=== PATIENT | female | born 1960 | race Caucasian/White ===

== ENCOUNTER 2016-10-21 08:03 | Inpatient (IN) | payer OTHER ==
--- NOTE | ~2016-10-21 | DS ---
Unit #: [id number] #: [id number] Patient: YAEL HORNER [id number] [facility]. [place] [id number] [place], [place] [address] [id number] I MR#: [id number] NAME: YAEL HORNER ROOM: 466 Age: 56 Sex: F Admission Date: 10/21/2016 : 1960 Discharge Date: 10/26/2016 Attending Physician: Glynn Fountain M.D. Primary Care Physician: Generic Doctor Not In System DISCHARGE SUMMARY DISCHARGE DIAGNOSES 1. Large incisional hernia from previous abdominal operation. 2. Chronic obstructive pulmonary disease. 3. Hypertension. 4. History of hepatitis C. 5. Postoperative intra-abdominal wall hematoma. OPERATIVE PROCEDURE Open incisional hernia repair with onlay of Prolene mesh. DISCHARGE MEDICATIONS Home medications plus Lortab 7.5 one p.o. q.4 hours p.r.n. pain, Medrol Dosepak for chronic obstructive pulmonary disease as well as Levaquin 500 mg a day. HISTORY OF PRESENT ILLNESS AND HOSPITAL COURSE This is a 56-year-old, white female, hypertensive with chronic obstructive pulmonary disease, who had previous lower abdominal incision, I believe, from previous hysterectomy who has a fairly large abdominal wall bulge. She was admitted for operative intervention. It was felt that it could not be doing laparoscopically, still an open incisional hernia repair was performed with onlay of Prolene mesh. This was done without complication. Postoperatively, the patient although who remained awake and alert had to have Pulmonary Medicine consult because of her chronic obstructive pulmonary disease and her drop in O2 saturations. They went ahead and checked her for other causes of hypoxia as well as starting her on nebulizers and some chest x-ray. The patient gradually improved over the course of 3 to 4 days. Her pulmonary status however did keep her in the facility slightly longer. We also went ahead and had to have to continue to evaluate her hemoglobin because she did develop an abdominal wall hematoma from the mobilization of the flaps. After this was evaluated, we went ahead and decided to discharge the patient on home oxygen. This was done, and we went ahead and sent the patient home on home oxygen. On 10/26/2016, her wounds are healing fairly nicely. She is incisionally tender. Otherwise, everything seems to be going well. We will see the patient back for followup in 5 to 6 days. Dictated by... Carter Aldana/rosetta Unit #: [id number] #: [id number] Patient: YAEL HORNER TD: 10/29/2016 04:31 JOB #: [id number] DISCHARGE SUMMARY X Mihai Elizalde MD X DISCHARGE SUMMARY
--- NOTE | ~2016-10-21 | CT16 ---
[facility] A Service of [facility] RADIOLOGY TEXT RESULTS PATIENT: YAEL HORNER LOCATION: [facility] 466-01 : [birth year] UNIT #: [id number] AGE: [address]: Glynn Fountain MD SEX: F ORDER DR: [id number] [facility] [address] [place], [place] [address] [id number] I MR#: [id number] Acc #: [id number] NAME: YAEL HORNER : 1960 SEX: F STUDY DATE/TIME: 10/24/2016 21:32 UNIT: [facility] ROOM: [facility] STUDY DESCRIPTION: CT Angio Chest for PE Attending Physician: Glynn Fountain M.D. Ordering Physician: Su Flores M.D. Primary Care Physician: Generic Doctor Not In System MEDICAL IMAGING REPORT This report is preliminary unless electronic signature is present EXAM CT scan of the chest with pulmonary embolus protocol. DATE OF EXAM 10/24/2016 INDICATION Hypoxia. History of AV malformation. Symptoms for 2 days. TECHNIQUE The patient was given 100 mL of Isovue-370. Spiral imaging was performed through the chest and 3D reconstructions of the pulmonary arteries were generated. NOTE: This CT exam was performed with one or more of the following radiation dose reduction techniques: automatic exposure control, adjustment of mA and/or kV according to patient size, and iterative reconstruction. COMPARISON There is no comparison. FINDINGS There are bilateral breast implants present. Aorta is normal in size. There is no dissection. There is optimal opacification of the pulmonary arteries and there is no CT evidence of pulmonary embolus. The right subclavian artery arises from the posterior aortic arch and passes behind the esophagus which is a normal variant. There is no mediastinal or hilar adenopathy. The visualized portion of the upper abdomen show changes suggesting cirrhosis of the liver with an irregular border, ascites and splenomegaly. Gallstones are present. The lungs have minimal patchy areas of ground-glass density in the upper lobe on the right and left, and there is minimal atelectasis in the right lower lobe. [facility] A Service of [facility] RADIOLOGY TEXT RESULTS PATIENT: YAEL HORNER LOCATION: [facility] 466- : [birth year] UNIT #: [id number] AGE: [address]: Glynn Fountain MD SEX: F ORDER DR: IMPRESSION 1. There is no CT evidence of pulmonary embolus or aortic dissection. There are patchy ground-glass faint infiltrates in them upper lobes. 2. Changes of cirrhosis with splenomegaly and ascites. Dictated by... Brennan Shipley M.D. THIS IS AN ELECTRONICALLY VERIFIED REPORT Brennan Shipley M.D. at 10/25/2016 4:33 PM MICHELLE/paulette TD: 10/25/2016 15:18 JOB #: [id number] MEDICAL IMAGING REPORT COPY
--- NOTE | ~2016-10-21 | CR63 ---
[facility] A Service of [facility] RADIOLOGY TEXT RESULTS PATIENT: YAEL HORNER LOCATION: [facility] 466-01 : [birth year] UNIT #: [id number] AGE: [address]: Glynn Fountain MD SEX: F ORDER DR: [id number] [facility] [address] [place], [place] [address] [id number] I MR#: [id number] Acc #: [id number] NAME: YAEL HORNER : 1960 SEX: F STUDY DATE/TIME: 10/23/2016 15:45 UNIT: [facility] ROOM: [facility] STUDY DESCRIPTION: CR Chest 2 View Attending Physician: Glynn Fountain M.D. Ordering Physician: Su Flores M.D. MEDICAL IMAGING REPORT This report is preliminary unless electronic signature is present EXAM Chest x-ray 10/23 INDICATIONS Shortness of air and weakness. Symptoms started yesterday. FINDINGS 2 views of the chest are compared with 09/03/2015. Lung volumes are low, but the lungs are clear. Cardiac and mediastinal contours are normal. No pneumothorax is seen. No pleural effusion is identified. IMPRESSION No active disease. No pleural fluid or pneumothorax. Dictated by... Glynn Bethea Jr., M.D. THIS IS AN ELECTRONICALLY VERIFIED REPORT Glynn Bethea Jr., M.D. at 10/25/2016 12:54 AM SUZY/quinton TD: 10/23/2016 18:59 JOB #: [id number] MEDICAL IMAGING REPORT COPY
--- NOTE | ~2016-10-21 | OR ---
Unit #: [id number] #: [id number] Patient: YAEL HORNER [id number] [facility] [address] [place], [place] [address] [id number] I MR#: [id number] NAME: YAEL HORNER ROOM: 466 Date of Procedure: 10/21/2016 Admission Date: 10/21/2016 Surgeon: Glynn Fountain M.D. : 1960 Attending Physician: Glynn Fountain M.D. Primary Care Physician: Generic Doctor Not In System OPERATIVE REPORT PREOPERATIVE DIAGNOSIS Incisional ventral hernia. POSTOPERATIVE DIAGNOSIS Incisional ventral hernia. PROCEDURE PERFORMED Open incisional ventral hernia repair with onlay polypropylene mesh. ANESTHESIA General endotracheal anesthesia. ESTIMATED BLOOD LOSS 50 mL. INDICATIONS FOR PROCEDURE Ms. Saeed is a 56-year-old female with hepatitis C and cirrhosis, who was brought to the office by her family. The patient has some degree of dementia. She has an incisional ventral hernia at the level of the umbilicus and extending superiorly that causes the patient significant discomfort even though it is fully reducible. Because of her history of liver disease, she was seen by her gang drill operator and dynamics ax consultant, Dr. Angeles who felt that she is well controlled as she felt that she could proceed with surgery from a cirrhotic standpoint. The patient does not have a caput medusae. Because of her history of ascites in the past and want to avoid intraperitoneal mesh. DESCRIPTION OF PROCEDURE The patient was admitted to [facility], positively identified, and transported to the operating room, and after induction of general endotracheal anesthesia, she received IV antibiotics per SCIP protocol and SCDs were placed. After being prepped and draped in usual sterile fashion. An incision was made over the palpable defect. I dissected down and the hernia sac from the surrounding soft tissues, elevated the hernia sac, opened the hernia sac, and excised the hernia sac from the soft tissue and identified the fascia. I palpated through the fascial defect and there were no other fascial defects above or below the area that was opened and there were no adhesions. I then mobilized the skin and soft tissue off the fascia circumferentially for 4 cm. Once the fascia had been dissected free and the edges freshened up. I closed the fascia primarily with #1 Vicryl Smead-Briceno suture technique. Once the fascia was closed, I infiltrated 30 mL of 0.5% Marcaine with Unit #: [id number] #: [id number] Patient: YAEL HORNER. Polypropylene mesh was then placed over the repair and secured with 2-0 Vicryl suture to the anterior fascia circumferentially. The soft tissue was irrigated with saline and Betadine. Hemostasis was obtained. The soft tissue was then closed over the mesh with 2-0 Vicryl interrupted sutures and the skin was closed with sterile skin nicole. Telfa and Tegaderm were placed as dressing. Sponges and needle counts were correct x3. The patient tolerated the procedure well and was transported to recovery in stable condition. Due to her history of encephalopathy, she will be kept on 23-hour observation to watch for bleeding, ensure pain control, and to monitor her encephalopathy. Dictated by... Carter Tatum/rosetta TD: 10/21/2016 23:18 JOB #: [id number] OPERATIVE REPORT X Glynn Fountain MD PROCEDURE OPERATIVE NOTE
--- NOTE | ~2016-10-21 | CO ---
Unit #: [id number] #: [id number] Patient: YALE HORNER [id number] [address] [address] [id number] MR#: [id number] NAME: YAEL HORNER ROOM: 466 Age: 56 Sex: F Admission Date: 10/21/2016 : 1960 Attending Physician: Glynn Fountain M.D. Primary Care Physician: Generic Doctor Not In System Consultation Date: 10/23/2016 CONSULTATION REPORT REASON FOR CONSULT Hypoxia. HISTORY OF PRESENT ILLNESS This is a 56-year-old female who is well known to our service from previous admission with past medical history significant for hepatitis C, liver cirrhosis, seizure disorder, congestive heart failure, who presented to the hospital for incisional ventral hernia repair. The patient was admitted on 10/21/2016 for that reason. The patient was evaluated for discharge today and she was found to be hypoxic with saturations in the low 90s on 3 to 4 liters nasal cannula. The patient is pleasantly confused and unable to provide a consistent history. She denied any fever or chills. She denied also any coughing but she said she is short of breath as any other person. PAST MEDICAL HISTORY 1. Liver cirrhosis. 2. Seizure disorder. 3. Hepatitis C. 4. Alcohol abuse. 5. Systolic congestive heart failure with ejection fraction of 30% to 35%. 6. Pulmonary hypertension. PAST SURGICAL HISTORY 1. Exploratory laparotomy with appendectomy. 2. Right knee aspiration. 3. section. 4. Ventral hernia repair. HOME MEDICATIONS 1. Aldactone. 2. Keppra. 3. Paxil. 4. Coreg. 5. Multivitamin. 6. Aspirin. 7. Potassium. ALLERGIES 1. Morphine. 2. Phenobarbital. Unit #: [id number] #: [id number] Patient: YAEL HORNER SOCIAL HISTORY The patient smokes two cigarettes per day, unsure for how long she has smoked. She has a remote history of alcoholism. No history of drug abuse recently. FAMILY HISTORY Negative for coronary artery disease. REVIEW OF SYSTEMS Twelve point review of systems were obtained from the patient but she was, again, pleasantly confused and I am unable to verify the reliability of her symptoms. However, she complained of only of shortness of breath and some abdominal tenderness. PHYSICAL EXAMINATION GENERAL: The patient is not in acute distress. HEENT: Atraumatic, normocephalic. PERRLA. EOMI. NECK: Supple. No JVD. No lymphadenopathy. LUNGS: Clear to auscultation bilaterally with decreased breath sounds mainly in the left lower lobe. HEART: S1, S2 with mild systolic murmur. ABDOMEN: Soft, tender to deep palpation. There is incision in the middle of her abdomen which appeared clean with no drainage. EXTREMITIES: No edema or cyanosis. NEUROLOGIC: Awake, alert. She is confused. No focal motor/sensory deficit. SKIN: No rashes. DIAGNOSTIC STUDIES LABORATORY: Magnesium 1.5, creatinine 0.9. White blood cell count 5.6, platelets 88. IMAGING: Unavailable. ASSESSMENT 1. Acute hypoxic respiratory failure. 2. Liver cirrhosis. 3. Pulmonary hypertension. 4. Systolic congestive heart failure. 5. Hepatitis C. 6. Smoking. PLAN 1. Will titrate the oxygen down/off as tolerated. Her baseline is room air. 2. Etiology of her hypoxia is possibly due to hepatic hydrothorax versus hepatopulmonary syndrome versus reports of pulmonary hypertension versus pulmonary edema. 3. Will obtain 2D echo to rule out intrapulmonary shunt. 4. PA/lateral chest x-ray to rule out any effusion needing thoracentesis. 5. Incentive spirometry efforts. It is up to 1.5 liters which is relatively good. 6. DVT/GI prophylaxis. Thank you, Dr. Fountain, for allowing us to be a part of this patient's care. Unit #: [id number] #: [id number] Patient: YAEL HORNER Dictated by... Carter Samuels TD: 10/23/2016 16:07 JOB #: [id number] CONSULTATION REPORT X KVNG MCPHERSON MD CONSULTATION REPORT
[~2016-10-21 08:03] MED LIST: ALDACTONE100 MG PO; ASPIRIN EC81 M1 PO; ASPIRIN81 M2 PO; ATIVAN0.5 MG PO; CALCIUM 600 + D1 TAB PO; CARVEDILOL3.125 MG PO; CENTRUM PO; CHRONULAC10 GM/15 M DOB; COMPAZINE10 M1 PO; COREG3.125 MG PO; CYTOTEC PO; ENSURE PLUS237 ML PO; FUROSEMIDE40 MG PO; GABAPENTIN300 M2 PO; GENERLAC PO; HYDROXYZINE PAM25 MG PO; KCL PO; KEPPRA500 M1 DOB; KEPPRA500 MG PO; LACTULOSE PO; LASIX PO; LISINOPRIL2.5 MG PO; MAGNESIUM250 M1 PO; MAGNESIUM400 MG PO; MORPHINE IR PO; NEURONTIN300 MG PO; PANTOPRAZOLE SO40 MG PO; PAROXETINE HCL10 MG PO; PAROXETINE HCL20 MG PO; PAXIL30 MG PO; PERCOCET7.5 PO; POTASSIUM CHLO20 ME1 PO; POTASSIUM99 M3 PO; PROTONIX PO; ROXANOL20 MG/ML PO; SENNA8.6 M1 PO; SENNA8.6 M2 PO; SIMVASTATIN5 MG PO; SPIRONOLACTONE100 MG PO; THERAPEUTIC FOR1 TA1 PO; VICOPROFEN PO; XIFAXAN550 MG PO; ZESTRIL2.5 M1 PO; ZINC CHELATE50 MG PO; ZINC SULFATE220 M1 PO; ZOCOR5 MG PO; ZOFRAN PO; [UNRECOGNIZED DRUG - OTHER] PO; [UNRECOGNIZED DRUG - OTHER] PO
[2016-10-21 09:11] LABS: BASOPHIL% 1.1 % (0-2.5); EOSINOPHIL# 0.2 X10e3 (0-0.7); EOSINOPHIL% 6.7 % (0.0-7.0); HEMATOCRIT 43.2 % (35.0-45.0); HEMOGLOBIN 14.4 gm/dL (12.0-16.0); LYMPHOCYTE# 0.8 X10e3 (1.0-3.5); LYMPHOCYTE% 27.4 % (17.0-45.0); MEAN CORPUSCULAR HEMOGLOBIN 31.3 PG (28-34); MEAN CORPUSCULAR HGB CONC 33.3 g/dL (30-36); MEAN PLATELET VOLUME 8.3 FL (6.5-11.5); MONOCYTE# 0.4 X10e3 (0-1.0); NEUTROPHIL# 1.5 X10e3 (1.5-7.1); NEUTROPHIL% 49.8 % (40-75); PLATELET COUNT 98 X10e3 (140-420); RED CELL DISTRIBUTION WIDTH 16.2 % (11.0-15.5)
[2016-10-21 09:17] LABS: DIFF IND NO
[2016-10-21 09:18] LABS: INR 1.3; PROTHROMBIN TIME (PATIENT) 13.8 SECONDS (9.6-11.5)
[2016-10-22 04:32] LABS: BASOPHIL% 0.2 % (0-2.5); EOSINOPHIL# 0.2 X10e3 (0-0.7); EOSINOPHIL% 3.8 % (0.0-7.0); HEMATOCRIT 37.5 % (35.0-45.0); LYMPHOCYTE# 0.6 X10e3 (1.0-3.5); LYMPHOCYTE% 10.6 % (17.0-45.0); MEAN CELL VOLUME 96.1 FL (83-96); MEAN CORPUSCULAR HEMOGLOBIN 31.4 PG (28-34); MEAN CORPUSCULAR HGB CONC 32.7 g/dL (30-36); MEAN PLATELET VOLUME 8.3 FL (6.5-11.5); MONOCYTE# 0.7 X10e3 (0-1.0); MONOCYTE% 12.9 % (3.0-12.0); NEUTROPHIL% 72.5 % (40-75); RED CELL DISTRIBUTION WIDTH 16.1 % (11.0-15.5)
[2016-10-22 04:33] LABS: DIFF IND NO; HEMOGLOBIN 12.2 gm/dL (12.0-16.0); PLATELET COUNT 88 X10e3 (140-420); WHITE BLOOD COUNT 5.6 X10e3 (4.0-10.5)
[2016-10-22 04:48] LABS: BLOOD UREA NITROGEN 10 mg/dL (9-23); BUN/CREATININE RATIO 11.11; CALCIUM SERUM 8.3 mg/dL (8.4-10.2); CARBON DIOXIDE 27 mmol/L (22-31); CHLORIDE 107 mmol/L (100-111); CREATININE SERUM 0.9 mg/dL (0.6-1.4); GLOM FILT RATE Estimated ABOVE60 mL/min (>60); GLUCOSE FASTING 134 mg/dL (70-110); MAGNESIUM 1.5 mg/dL (1.6-3.0); SODIUM 138 mmol/L (135-145)
[2016-10-24 03:27] LABS: HEMATOCRIT 33.1 % (35.0-45.0); HEMOGLOBIN 11.1 gm/dL (12.0-16.0); MEAN CELL VOLUME 95.1 FL (83-96); MEAN CORPUSCULAR HGB CONC 33.6 g/dL (30-36); MEAN PLATELET VOLUME 8.6 FL (6.5-11.5); RED BLOOD COUNT 3.48 X10e (3.90-5.30); RED CELL DISTRIBUTION WIDTH 15.6 % (11.0-15.5); WHITE BLOOD COUNT 4.6 X10e3 (4.0-10.5)
[2016-10-26] MEDS ORDERED: LEVAQUIN750 MG PO (10:59)
[2016-10-26] MEDS ORDERED: MEDROL DOSEPAK4 MG PO (11:01)
[2016-10-26] MEDS ORDERED: HYDROCODONE-APA1 T55 PO (11:03)
== END 2016-10-26 13:40 | disposition home or self-care (01) | DRG 988 ==
LOC: CSUR 08:03 → CPACUOF 08:59 → C4C 12:10
PROVIDERS: Internal Medicine Pulmonary Disease; Specialist
PROC: 0WUF0JZ Supplement Abdominal Wall with Synthetic Substitute, Open Approach (ICD-10-PCS; 2016-10-21)
PROC: B246YZZ Ultrasonography of Right and Left Heart using Other Contrast (ICD-10-PCS; principal; 2016-10-24)
DX: J96.01 Acute respiratory failure with hypoxia (principal); I50.22 Chronic systolic (congestive) heart failure; I27.2 Other secondary pulmonary hypertension; K43.2 Incisional hernia without obstruction or gangrene; F17.210 Nicotine dependence, cigarettes, uncomplicated; J44.9 Chronic obstructive pulmonary disease, unspecified; I10 Essential (primary) hypertension; Z90.710 Acquired absence of both cervix and uterus; G40.909 Epilepsy, unspecified, not intractable, without status epilepticus; K74.60 Unspecified cirrhosis of liver; B19.20 Unspecified viral hepatitis C without hepatic coma; Z79.82 Long term (current) use of aspirin
CPT/HCPCS: 71020; 71275; 80048; 83735; 84132; 85025; 85027; 85610; 86850; 86900; 86901; 93306; 94640; 94760; 94761; 97163; C1781; J0330; J0690; J2250; J2270; J2405; J2710; J3010; J3475; Q9967

== ENCOUNTER 2016-12-12 08:47 | Emergency (ER) | payer OTHER ==
--- NOTE | ~2016-12-12 | EKG ---
PATIENT: YAEL HORNER UNIT #: [id number] Ventricular Rate: 52 BPM Atrial Rate: 52 BPM P-R Interval: 100 ms QRS Duration: 90 ms Q-T Interval: 518 ms QTC Calculation(Bezet): 481 ms P Taylors: 32 degrees Calculated R Taylors: -28 degrees Calculated T Taylors: -9 degrees Diagnosis Line: Sinus bradycardia with short FL Diagnosis Line: Nonspecific ST and T wave abnormality Diagnosis Line: Abnormal ECG Diagnosis Line: When compared with ECG of 15-OCT-2016 15:12, Diagnosis Line: No significant change was found Diagnosis Line: Confirmed by GURINDER PEARL MD ([id number]) on Diagnosis Line: 12/13/2016 6:43:52 AM INTERPRETING GUZMAN KOEHLER
--- NOTE | ~2016-12-12 | CR72 ---
[facility] A Service of [facility] RADIOLOGY TEXT RESULTS PATIENT: YAEL HORNER LOCATION: [facility] : [birth year] UNIT #: [id number] AGE: [address]: Lynne [place] MD SEX: F ORDER DR: [id number] [facility] [address]. [place], [place] [address] [id number] MR#: [id number] Acc #: [id number] NAME: YAEL HORNER : 1960 SEX: F STUDY DATE/TIME: 12/12/2016 8:33 UNIT: [facility] ROOM: STUDY DESCRIPTION: CR Chest Single View Portable Attending Physician: Lynne [place] M.D. Ordering Physician: Lynne [place] M.D. Primary Care Physician: No Primary Care Physician MEDICAL IMAGING REPORT This report is preliminary unless electronic signature is present EXAM Portable chest, 12/12. INDICATION Shortness of air and anxiety that started today. History of smoking. COMPARISON 10/23/2016 FINDINGS A single AP portable view of the chest shows both lungs to be clear. The heart is normal in size. The mediastinal contour is normal. No significant bone abnormalities are seen. IMPRESSION Normal portable chest. Dictated by... Glynn Bethea Jr., M.D. THIS IS AN ELECTRONICALLY VERIFIED REPORT Glynn Bethea Jr., M.D. at 12/12/2016 4:47 PM SUZY/isabel TD: 12/12/2016 09:15 JOB #: [id number] MEDICAL IMAGING REPORT Page 1 of 1 COPY
[~2016-12-12 08:47] MED LIST changes: +HYDROCODONE-APA1 T55 PO; +LEVAQUIN750 MG PO; +MEDROL DOSEPAK4 MG PO
[2016-12-12 09:15] LABS: BASOPHIL% 0.6 % (0-2.5); EOSINOPHIL# 0.1 X10e3 (0-0.7); EOSINOPHIL% 2.6 % (0.0-7.0); HEMATOCRIT 37.2 % (35.0-45.0); HEMOGLOBIN 12.3 gm/dL (12.0-16.0); LYMPHOCYTE# 0.6 X10e3 (1.0-3.5); LYMPHOCYTE% 30.9 % (17.0-45.0); MEAN CELL VOLUME 95.6 FL (83-96); MEAN CORPUSCULAR HEMOGLOBIN 31.6 PG (28-34); MEAN CORPUSCULAR HGB CONC 33.1 g/dL (30-36); MEAN PLATELET VOLUME 8.3 FL (6.5-11.5); MONOCYTE# 0.4 X10e3 (0-1.0); MONOCYTE% 18.6 % (3.0-12.0); NEUTROPHIL# 0.9 X10e3 (1.5-7.1); NEUTROPHIL% 47.3 % (40-75); PLATELET COUNT 74 X10e3 (140-420); RED BLOOD COUNT 3.89 X10e (3.90-5.30); RED CELL DISTRIBUTION WIDTH 14.2 % (11.0-15.5)
[2016-12-12 09:34] LABS: POC - CKMB 1.2 ng/mL (0.0-7.9); POC - TROPONIN <0.05 ng/mL (<=0.05)
[2016-12-12 09:47] LABS: DIFF IND YES
[2016-12-12 09:48] LABS: PLATELET ESTIMATE DECREASED (NORMAL); POIKILOCYTOSIS SL
[2016-12-12 10:18] LABS: CALCIUM SERUM 8.7 mg/dL (8.4-10.2); CREATININE SERUM 0.5 mg/dL (0.6-1.4); GLOM FILT RATE Estimated 109.7 mL/min (>60)
[2016-12-12 10:26] LABS: POTASSIUM 2.8 mmol/L (3.5-5.1)
== END 2016-12-12 12:05 | disposition home or self-care (01) ==
LOC: CED 08:47
PROVIDERS: Emergency Medicine
DX: F41.9 Anxiety disorder, unspecified (principal); F17.200 Nicotine dependence, unspecified, uncomplicated; Z90.49 Acquired absence of other specified parts of digestive tract; Z88.8 Allergy status to other drugs, medicaments and biological substances; Z79.899 Other long term (current) drug therapy
CPT/HCPCS: 36415; 71010; 80048; 82553; 84484; 85025; 93005; 99283

== ENCOUNTER 2016-12-12 20:16 | Emergency (ER) | payer OTHER | END 2016-12-12 21:06 | disposition home or self-care (01) | LOC: CED 20:16 | DX: E87.6 Hypokalemia (principal); F41.1 Generalized anxiety disorder; F19.939 Other psychoactive substance use, unspecified with withdrawal, unspecified; F17.200 Nicotine dependence, unspecified, uncomplicated; Z91.09 Other allergy status, other than to drugs and biological substances | CPT/HCPCS: 99282; 99283 ==

== ENCOUNTER 2017-02-22 04:23 | Emergency (ER) | payer OTHER ==
[2017-02-22] MEDS ORDERED: LIBRIUM PO (04:33)
[2017-02-22] MEDS ORDERED: MULTI VITAMIN1 EACH PO (04:34)
[2017-02-22] MEDS ORDERED: LASIX20 MG PO (04:34)
[2017-02-22] MEDS ORDERED: KEPPRA500 MG PO (04:34)
[2017-02-22] MEDS ORDERED: PAROXETINE HCL20 MG PO (04:35)
[2017-02-22] MEDS ORDERED: XIFAXAN550 MG PO (04:36)
[2017-02-22] MEDS ORDERED: ALDACTONE100 MG PO (04:36)
== END 2017-02-22 08:11 | disposition home or self-care (01) ==
LOC: SED 04:23
DX: F43.0 Acute stress reaction (principal); F41.1 Generalized anxiety disorder; Z86.19 Personal history of other infectious and parasitic diseases; G40.909 Epilepsy, unspecified, not intractable, without status epilepticus; I25.2 Old myocardial infarction; Z90.49 Acquired absence of other specified parts of digestive tract; F17.200 Nicotine dependence, unspecified, uncomplicated; Z88.8 Allergy status to other drugs, medicaments and biological substances
CPT/HCPCS: 99284